=== PATIENT | male | born 1955 | race Caucasian/White ===

== ENCOUNTER 2020-04-20 05:56 | Inpatient (IN) ==
--- NOTE | 2020-04-04 15:57 | PAT Medication Instructions ---
Medication Instructions Date of Service April 04, 2020 Home Medications amlodipine 5 mg PO QAM aspirin [Aspir-81] 81 mg PO QAM cetirizine [Zyrtec] 10 mg PO HS cyanocobalamin (vitamin B-12) 1,000 mcg SUBCUT MONTHLY dulaglutide [Trulicity] 0.75 mg SUBCUT WK escitalopram oxalate 5 mg PO HS insulin glargine [Lantus Solostar U-100 Insulin] 75 unit SUBCUT BID levothyroxine 75 mcg PO QAM lisinopril 20 mg PO QAM metformin 1,000 mg PO BID metoprolol tartrate 25 mg PO BID oxycodone-acetaminophen 1 tab PO BID simvastatin 20 mg PO Q2D gabapentin 300 mg PO UD Continue as directed cyanocobalamin (vitamin B-12) 1,000 mcg SUBCUT MONTHLY (just do not take AM of surgery) dulaglutide [Trulicity] 0.75 mg SUBCUT WK (just do not take AM of surgery) ASK your prescriber and surgeon aspirin [Aspir-81] 81 mg PO QAM DO NOT take the morning of surgery lisinopril 20 mg PO QAM metformin 1,000 mg PO BID Take morning of surgery With a small sip of water, OTHERWISE NOTHING TO EAT OR DRINK AFTER MIDNIGHT: amlodipine 5 mg PO QAM levothyroxine 75 mcg PO QAM metoprolol tartrate 25 mg PO BID oxycodone-acetaminophen 1 tab PO BID (okay to take up to 4 hours prior to surgery if needed) gabapentin 300 mg PO UD Take evening before surgery cetirizine [Zyrtec] 10 mg PO HS escitalopram oxalate 5 mg PO HS insulin glargine [Lantus Solostar U-100 Insulin] 75 unit SUBCUT BID metformin 1,000 mg PO BID metoprolol tartrate 25 mg PO BID oxycodone-acetaminophen 1 tab PO BID (if needed) simvastatin 20 mg PO Q2D gabapentin 300 mg PO UD Insulin Dependent Diabetic Patients * Test your blood sugar the morning of surgery * If Blood Sugar is GREATER THAN 150, take HALF of your regular dose of: insulin glargine [Lantus Solostar U-100 Insulin] (37 units) * If Blood Sugar is LESS THAN 150, DO NOT TAKE ANY: insulin glargine [Lantus Solostar U-100 Insulin] Other Notes If you have any questions please call us at [phone] or [phone] or [phone] or [phone]
--- NOTE | 2020-04-05 13:54 | Anesthesiology Consultation ---
Date of Service April 05, 2020 Assessment & Plan (1) Encounter for pre-operative examination: COVID Status: As of 04/05 assessment, patient denies travel to endemic area, known exposure/sick contacts, or symptoms of COVID19. Patient instructed that they and their household members must follow strict social distancing guidelines, wear a mask in public and avoid travel for 14 days prior to surgery. Preoperative COVID19 testing to be completed prior to surgery per surgeon's arra ngements. Patient made aware to self-isolate as much as possible between COVID testing and surgery. Chart Review Chart Review: Acceptable Risk for Surgery and Patient seen in Pre Admission Testing Teaching & Discussion Instructed NPO after midnight before surgery, except medications with 15 cc of water. Medication instructions provided according to the PAT guidelines. History Surgery Operation Date: 04/20/20 07:45 Proposed Procedures p C5-C6 Anterior Cervical Discectomy and Fusion; Spinal Cord Monitoring - Milo Luu DO Height/Weight Height: 5 ft 10 in Weight: 121.5 kg Allergies Allergy/AdvReac Type Severity Reaction Status Date / Time azithromycin Allergy Mild ITCHING Verified 03/31/20 13:21 [From Zithromax Z-Servando] Medications Home Medications Medication Instructions Recorded Confirmed Last Taken amlodipine 5 mg PO QAM 03/31/20 03/31/20 Unknown aspirin [Aspir-81] 81 mg PO QAM 03/31/20 03/31/20 Unknown cetirizine [Zyrtec] 10 mg PO HS 03/31/20 03/31/20 Unknown cyanocobalamin (vitamin B-12) 1,000 mcg SUBCUT MONTHLY 03/31/20 03/31/20 Unknown dulaglutide [Trulicity] 0.75 mg SUBCUT WK 03/31/20 03/31/20 Unknown escitalopram oxalate 5 mg PO HS 03/31/20 03/31/20 Unknown insulin glargine [Lantus Solostar 75 unit SUBCUT BID 03/31/20 03/31/20 Unknown U-100 Insulin] levothyroxine 75 mcg PO QAM 03/31/20 03/31/20 Unknown lisinopril 20 mg PO QAM 03/31/20 03/31/20 Unknown metformin 1,000 mg PO BID 03/31/20 03/31/20 Unknown metoprolol tartrate 25 mg PO BID 03/31/20 03/31/20 Unknown oxycodone-acetaminophen 1 tab PO BID 03/31/20 03/31/20 Unknown simvastatin 20 mg PO Q2D 03/31/20 03/31/20 Unknown gabapentin 300 mg PO UD 04/01/20 04/01/20 Unknown Past Medical History Medical History Cervical spinal stenosis Diabetes mellitus, type 2 Hyperlipidemia Hypertension Hypothyroidism Peripheral neuropathy Past Family History Family History Sister Family history of diabetes mellitus Brother Family history of diabetes mellitus Past Surgical History Surgical History Cyst REMOVED FROM TESTICLE H/O partial nephrectomy RT D/T BENIGN KIDNEY TUMOR History of cataract surgery RT/LEFT History of colonoscopy History of tonsillectomy and adenoidectomy History of tooth extraction Past Anesthesia History No Hx of Anesthesia Complications Brother had some kind of reaction to anesthesia and " on the table and was brought back" but he apparently had many other comorbidities. History of PONV No Hx of PONV and No Hx of Motion Sickness STOP BANG Total 4 Social History Smoking Status: Never smoker Do You Dip or Chew Tobacco: No Hx Alcohol Use: Yes alcohol intake frequency: holidays/special occasions only Hx Substance Use: No substance use type: does not use Review of Systems Pt denies any recent chest pain, shortness of breath, palpitations, cough, fever, URI, or uncontrolled acid reflux. Physical Exam Vital Signs BP: 120/76 P: 64bpm SPO2: 96% RA T: 98.6 F R: 16 Constitutional + obese ENMT Mouth: no dental restorations, no chipped teeth and no loose teeth Thyromental Distance: > or= 3.5 Finger Breadths Mallampati Class: II Neck normal visual inspection; neck extension not limited Respiratory normal respiratory effort Auscultation: lungs clear to auscultation bilaterally Cardiovascular Rate/Rhythm: regular rate and regular rhythm Heart Sounds: no murmur Vessels: no carotid bruit Extremities: no edema Testing Laboratory Results 04/05/20 14:04 04/05/20 14:04 PT 11.4 Seconds (9.0-12.0) 04/05/20 14:04 INR 1.1 (0.9-1.1) 04/05/20 14:04 APTT 27.1 Seconds (21.0-31.0) 04/05/20 14:04 Urine Color Yellow 04/05/20 14:04 Urine Appearance Clear (Clear) 04/05/20 14:04 Urine pH 5.0 (4.5-7.5) 04/05/20 14:04 Ur Specific [place] 1.032 (1.000-1.030) H 04/05/20 14:04 Urine Protein 1+ (Negative) H 04/05/20 14:04 Urine Glucose (UA) 1+ (Negative) H 04/05/20 14:04 Urine Ketones Negative (Negative) 04/05/20 14:04 Urine Nitrite Negative (Negative) 04/05/20 14:04 Ur Leukocyte Esterase Negative (Negative) 04/05/20 14:04 Urine WBC (Auto) 1-5 /hpf (0-5) 04/05/20 14:04 Urine RBC (Auto) 0-4 /hpf (0-4) 04/05/20 14:04 U Hyaline Cast (Auto) 1-5 /lpf (0-5) 04/05/20 14:04 U Epithel Cells (Auto) 20-30 /lpf (0-5) H 04/05/20 14:04 Urine Bacteria (Auto) Negative (Negative) 04/05/20 14:04 Blood Type B Positive 04/05/20 14:04 Antibody Screen NEGATIVE 04/05/20 14:04 Electrocardiogram Date: 04/05/20 Findings: + SB @ (58bpm with 1st degree AV block) Nonspecific ST abnormality. Chest X-Ray Date: 04/05/20 Findings: + NAD
[2020-04-05 14:50] LABS: Basophils # (auto) 0.04 K/uL (0-0.2); Basophils % (auto) 0.6 %; Eosinophils # (auto) 0.19 K/uL (0-0.5); Eosinophils % (auto) 2.9 %; Hematocrit (blood only) 42.4 % (42-52); Hemoglobin 14.7 g/dL (14.0-18.0); Immature Granulocytes # (auto) 0.03 K/uL (0.00-0.02); Immature Granulocytes % (auto) 0.5 %; Lymphocytes # (auto) 2.41 K/uL (1.2-3.4); Lymphocytes % (auto) 36.4 %; Mean Corpuscular Hemoglobin 30.4 pg (25-34); Mean Corpuscular Hgb Conc 34.7 g/dL (32-36); Mean Corpuscular Volume 87.6 fL (80-100); Mean Platelet Volume 9.9 fL (7.4-10.4); Monocytes % (auto) 9.1 %; Neutrophils # (auto) 3.35 K/uL (1.4-6.5); Neutrophils % (auto) 50.5 %; Platelet Count 144 K/uL (130-400); RDW Coefficient of Variation 13.4 % (11.5-14.5); RDW Standard Deviation 43.3 fL (36.4-46.3); Red Blood Count 4.84 M/uL (4.7-6.1); White Blood Count 6.62 K/uL (4.8-10.8)
[2020-04-05 14:52] LABS: Appearance Urine Clear (Clear); Bacteria Urine Automated Negative (Negative); Bilirubin Urine Negative (Negative); Blood Urine Negative (Negative); Color Urine Yellow; Epithelial Cell Urine Auto 20-30 /lpf (0-5); Glucose Urine UA 1+ (Negative); Ketones Urine Negative (Negative); Leukocyte Esterase Urine Negative (Negative); Nitrite Urine Negative (Negative); Protein Urine 1+ (Negative); RBC Urine Automated 0-4 /hpf (0-4); Specific Gravity Urine 1.032 (1.000-1.030); Urobilinogen Urine Negative (Negative)
--- NOTE | 2020-04-05 14:56 | XRay Report ---
XR chest Pre-admission PA/Lat CLINICAL HISTORY: Preoperative chest COMPARISON STUDY: No previous studies for comparison. FINDINGS: The cardiac and mediastinal contours are normal. There is no evidence of focal pulmonary co nsolidation. There is no evidence of failure. No pleural effusions are visualized.[ IMPRESSION: No active disease in the chest. ACT 112: Negative or not required by law. Electronically signed by: Manoj Sharma M.D. 04/05/2020 2:54 PM
[2020-04-05 15:01] LABS: INR 1.1 (0.9-1.1); Partial Thromboplastin Time 27.1 Seconds (21.0-31.0); Prothrombin Time 11.4 Seconds (9.0-12.0)
--- NOTE | 2020-04-05 15:52 | Electrocardiogram Report ---
Test Reason : Blood Pressure : / mmHG Vent. Rate : 058 BPM Atrial Rate : 058 BPM P-R Int : 224 ms QRS Dur : 090 ms QT Int : 446 ms P-R-T Axes : 030 005 092 degrees QTc Int : 437 ms Sinus bradycardia with 1st degree A-V block Nonspecific ST abnormality Abnormal ECG No previous ECGs available Confirmed by Andrea Vera ([id number]) on 04/05/2020 3:52:17 PM Referred By: Milo Luu Confirmed By:Andrea Vera
[2020-04-05 16:09] LABS: Calcium 7.9 mg/dl (8.5-10.1); Creatinine Clr Calc Pharmacy 88.7 ml/min; Est GFR (African American) 81.8; Est GFR (Non-African American) 70.6; Potassium 4.7 mmol/L (3.5-5.1)
[2020-04-20] MEDS ORDERED: GABAPENTIN 600 MG DOSE PO SCH (06:00)
[2020-04-20] MEDS ORDERED: CeleBREX 200 MG CAP PO SCH (06:00)
[2020-04-20] MEDS ORDERED: CEFAZOLIN 3000MG 72.5 ML IV SCH (06:00)
[2020-04-20] MEDS ORDERED: LR 15ML/HR IV SCH (06:00)
[2020-04-20] MEDS ORDERED: ACETAMINOPHEN 500 MG TAB PO SCH (06:00)
[2020-04-20] MEDS ORDERED: BACITRACIN INJ 50,000 UNIT VIAL ONE (06:59)
[2020-04-20] MEDS ORDERED: MIDAZOLAM HCL 1 MG/ML 2ML VIAL ONE (07:02)
[2020-04-20] MEDS ORDERED: LIDOCAINE HCL 2% 2 ML VIAL/AMP(20MG/ML) INFIL ONE (07:02)
[2020-04-20] MEDS ORDERED: ONDANSETRON INJ 2 MG/ML 2 ML VIAL ONE (07:02)
[2020-04-20] MEDS ORDERED: PROPOFOL IV EMULSION 10 MG/ML 20 ML VIAL IV ONE ×4 (07:02→08:37)
[2020-04-20] MEDS ORDERED: ROCURONIUM BROMIDE 10 MG/ML 5 ML VIAL IV ONE ×3 (07:02→10:48)
[2020-04-20] MEDS ORDERED: fentaNYL citrate 100 MCG/2 ML VIAL ONE (07:02)
--- NOTE | 2020-04-20 07:34 | History & Physical Bridge Note ---
Date of Service April 20, 2020 History & Physical Bridge Note I have examined the patient, reviewed the History & Physical and in the interval since the performance of the History & Physical I have noted the following changes of clinical significance: no changes noted
--- NOTE | 2020-04-20 07:35 | History & Physical Report ---
Date of Service April 20, 2020 Assessment & Plan (1) Herniation of cervical intervertebral disc with radiculopathy: Admission and Anticipated Discharge Date Admission Date: C5-C6 anterior cervical discectomy and fusion History of Present Illness Chief Complaint: Neck and arm pain Primary Care Provider: Nicko Juarez This is a 65-year-old male presents with neck and arm symptoms with nonoperative care is here for surgical invention. Allergies Allergy/AdvReac Type Severity Reaction Status Date / Time azithromycin Allergy Mild ITCHING Verified 04/20/20 06:08 [From Zithromax Z-Servando] Home Medications Home Medications Medication Instructions Recorded Confirmed Type amlodipine 5 mg PO QAM 03/31/20 04/20/20 History aspirin [Aspir-81] 81 mg PO QAM 03/31/20 04/20/20 History cetirizine [Zyrtec] 10 mg PO HS 03/31/20 04/20/20 History cyanocobalamin (vitamin B-12) 1,000 mcg SUBCUT MONTHLY 03/31/20 04/20/20 History dulaglutide [Trulicity] 0.75 mg SUBCUT WK 03/31/20 04/20/20 History escitalopram oxalate 5 mg PO HS 03/31/20 04/20/20 History insulin glargine [Lantus Solostar 32 unit SUBCUT BID 03/31/20 04/20/20 History U-100 Insulin] levothyroxine 75 mcg PO QAM 03/31/20 04/20/20 History lisinopril 20 mg PO QAM 03/31/20 04/20/20 History metformin 1,000 mg PO BID 03/31/20 04/20/20 History metoprolol tartrate 25 mg PO BID 03/31/20 04/20/20 History oxycodone-acetaminophen 1 tab PO BID 03/31/20 04/20/20 History simvastatin 20 mg PO Q2D 03/31/20 04/20/20 History gabapentin 300 mg PO UD 04/01/20 04/20/20 History Past Med/Surg History Medical History Cervical spinal stenosis Diabetes mellitus, type 2 Hyperlipidemia Hypertension Hypothyroidism Peripheral neuropathy Surgical History Cyst REMOVED FROM TESTICLE H/O partial nephrectomy RT D/T BENIGN KIDNEY TUMOR History of cataract surgery RT/LEFT History of colonoscopy History of tonsillectomy and adenoidectomy History of tooth extraction Family History Sister Family history of diabetes mellitus Brother Family history of diabetes mellitus Social History Smoking Status: Never smoker Second Hand Exposure: No; Do You Dip or Chew Tobacco: No; Tobacco Cessation Education Requested by Patient: No Hx Alcohol Use: Yes Hx Substance Use: No Preferred Language: Wolof Regulator Inspector Required: No Beliefs That Will Affect Care: None Current Living Situation: Spouse Feels Safe at Home: Yes Safety Concerns: Feels Safe At This Time Physical Exam Physical Exam: Patient alert and oriented neurologically intact. Heart regular rhythm. Lungs clear to auscultation. Results & Data ([facility]) Vital Signs (Past 12 Hours) Vital Signs Temp Pulse Resp BP Pulse Ox 04/20/20 06:15 36.4 C L 58 L 20 149/84 H 97
[2020-04-20] MEDS ORDERED: FLOSEAL HEMOSTATIC MATRIX 10ML TOP ONE (08:18)
[2020-04-20] MEDS ORDERED: HYDROmorphone INJ 2 MG/ML SYR/VIAL ONE ×2 (08:30→10:07)
[2020-04-20] MEDS ORDERED: DEXAMETHASONE SOD INJ 4 MG/ML VIAL ONE (08:37)
[2020-04-20] MEDS ORDERED: SUCCINYLCHOLINE 100MG/5ML SYR IV ONE (08:37)
--- NOTE | 2020-04-20 09:00 | Operative Report ---
Post Operative Report Pre & Post Diagnosis Operation Date: 04/20/20 07:45 Pre-Op Diagnosis: Spinal Stenosis, Cervical Region Post-Op Diagnosis: Spinal Stenosis, Cervical Region I identified the patient and participated in the time-out.: Yes Procedure Operation Date: 04/20/20 07:45 Actual Procedures #1 anterior cervical discectomy with bilateral foraminotomies C5-C6. #2 anterior cervical arthrodesis C5-C6. #3 placement of 8 mm Spira cage filled with DBM at C5-C6. #4 application of villatoro plate and screws across C5-C6. Surgeon Milo Luu, Public Records Officer Colette Vargas Estimated Blood Loss 10 Findings See Below The patient is 5 foot 10 inches tall weighing over 119 kg with a BMI in excess of 37. The patient's body habitus did add increased technical difficulty both with positioning exposure and surgical procedure. This at least 25% increase to the operative time. Specimens None Indications This is a 65-year-old male presents with chronic persistent neck and arm symptoms after failing course of nonoperative care is here for surgical intervention. Description of Procedure Patient was met with identified informed consent obtained. Patient was then taken to the operative suite underwent an patient placed in a prone position with the head Shah shaft headman. All bony prominences well-padded eyes inspected to ensure no external pressure placed upon them. This point the anterior cervical spine was prepped and draped in normal sterile fashion. The assistance of fluoroscopy identified the C5-6 displacement transverse incision was placed along the right anterior aspect of the cervical spinal lines region. Sharp dissection with the assistance of bipolar electrocautery was performed down to and exposing the C5-6 6 disc space. I verified my position with fluoroscopy. Then performed a complete discectomy of C5-6 out to the unc overtebral joints bilaterally. [place] distracting pins were lysed assist in visualization. Removed all posterior annular fibers longitudinal ligament and evidence of disc herniation on the left. After complete decompression endplates were burred to subcortical bleeding bone and an 8 mm Spira cage filled with DBM tapped in position. Distracting apparatus was removed and a 5 complete and screws applied with assistance of fluoroscopy. The incision was then copiously irrigated explored to ensure no damage to surrounding structures remaining bleeding. 10 round BERNARD drain inserted. The incision was then closed with 2 Vicryl in a fashion of 4 Monocryl for final closure. Steri-Strip sterile dressings placed. Patient waken taken PACU stable condition. Please note spinal cord monitoring was utilized that the procedure no changes noted. Lastly Colette Vargas was present at the entire surgery involved the patient positioning complex portions of the surgery and final skin closure. I attest to the content of the Intraoperative Record and any orders documented therein. Any exceptions are noted below.
--- NOTE | 2020-04-20 09:39 | Fluoroscopy Report ---
INTRAOPERATIVE RADIOGRAPHS CLINICAL HISTORY: C5-C6 spinal fusion. Fluoroscopy time: 10 seconds. FINDINGS: 2 spot fluoroscopic views of the cervical spine are presented. There has been discectomy at C5-C6 with anterior fusion at this level. The orthopedic hardware appears intact. An endotracheal tu be is in place. IMPRESSION: Intraoperative images from C5-C6 spinal fusion as above. Electronically signed by: Frank Salmeron M.D. 04/20/2020 9:37 AM
[2020-04-20] MEDS ORDERED: ATROPINE SULFATE 0.1 MG/ML 10ML SYR IV PRN (09:41)
[2020-04-20] MEDS ORDERED: HYDROmorphone INJ 1 MG/ML SYRINGE IV PRN ×2 (09:41→10:26)
[2020-04-20] MEDS ORDERED: ONDANSETRON INJ 2 MG/ML 2 ML VIAL IV PRN ×2 (09:41→10:26)
[2020-04-20] MEDS ORDERED: LABETALOL HCL IV 5 MG/ML 20ML IV PRN (09:41)
--- NOTE | 2020-04-20 10:16 | Anesthesiology Progress Note ---
Date of Service April 20, 2020 Anesthesia Post Procedure Vital Signs Vital Signs: Temp Pulse Pulse Resp BP BP Pulse Ox 04/20/20 10:05 59 L 16 148/86 H 99 04/20/20 09:55 36.3 C L 58 L 16 150/89 H 99 04/20/20 09:45 62 16 144/82 H 99 04/20/20 09:35 59 L 16 145/84 H 99 04/20/20 09:25 55 L 16 148/83 H 100 04/20/20 09:18 36.4 C L 59 L 16 163/95 H 100 04/20/20 06:15 36.4 C L 58 L 20 149/84 H 97 Transfer of Care Handoff Completed per policy Notes Mental Status: alert / awake / arousable Patient Amnestic to Procedure: Yes Nausea / Vomiting: adequately controlled Pain: adequately controlled Airway Patency, RR, SpO2: stable & adequate BP & HR: stable & adequate Hydration State: stable & adequate Anesthetic Complications: no major complications apparent
[2020-04-20] MEDS ORDERED: NALOXONE HCL 0.4 MG/1 ML VIAL/CARP IV PRN (10:26)
[2020-04-20] MEDS ORDERED: SOD PHOSPHATE/SOD BIPHOSPHATE ENEMA 132 ML BTL PR PRN (10:26)
[2020-04-20] MEDS ORDERED: DO NOT ADMINISTER FLU VACCINE PRN (10:26)
[2020-04-20] MEDS ORDERED: DO NOT ADMINISTER PNEUMOCOCCAL VACCINE PRN (10:26)
[2020-04-20] MEDS ORDERED: TRAMADOL HCL 50 MG TABLET PO PRN (10:26)
[2020-04-20] MEDS ORDERED: FAMOTIDINE 20 MG TAB PO PRN (10:26)
[2020-04-20] MEDS ORDERED: PROMETHAZINE HCL 12.5 MG in SODIUM CHLORIDE 0.9% 50 ML IV PRN (10:26)
[2020-04-20] MEDS ORDERED: METOCLOPRAMIDE HCL INJ 5 MG/ML 2 ML VIAL IV PRN (10:26)
[2020-04-20] MEDS ORDERED: RACEPINEPHRINE 2.25% NEBU SOLN 0.5 ML VIAL INH PRN (10:26)
[2020-04-20] MEDS ORDERED: MAGNESIUM HYDROXIDE SUSP 30 ML UDC PO PRN (10:26)
[2020-04-20] MEDS ORDERED: ACETAMINOPHEN 1,000 MG/100 ML VIAL IV PRN (10:26)
[2020-04-20] MEDS ORDERED: LORazepam 0.5 MG TAB PO PRN (10:26)
[2020-04-20] MEDS ORDERED: ACETAMINOPHEN 500 MG TAB PO PRN (10:26)
[2020-04-20] MEDS ORDERED: ALUMINUM/MAGNESIUM SUSP 30 ML UDC PO PRN (10:26)
[2020-04-20] MEDS ORDERED: OXYCODONE HCL IR 5 MG TAB (IMMEDIATE RELEASE) PO PRN (10:26)
[2020-04-20] MEDS ORDERED: DEXAMETHASONE SOD PHOSPHATE 8 MG in SYRINGE 0 ML IV PRN (10:26)
[2020-04-20] MEDS ORDERED: HYDROmorphone INJ 0.5 MG/0.5 ML SYR IV PRN (10:26)
[2020-04-20] MEDS ORDERED: ONDANSETRON 4 MG OD TAB PO PRN (10:26)
[2020-04-20] MEDS ORDERED: LORazepam 0.5 MG/1 ML VIAL IV PRN (10:26)
[2020-04-20] MEDS ORDERED: PHARMACY GLYCEMIC MGMT CONSULT PRN (10:30)
[2020-04-20] MEDS ORDERED: GLUCOSE 40% GEL 15 GM TUBE PO PRN (10:45)
[2020-04-20] MEDS ORDERED: GLUCAGON FOR INJ 1 MG VIAL IM PRN (10:45)
[2020-04-20] MEDS ORDERED: CARBOHYDRATES FOR HYPOGLYCEMIA PO PRN (10:45)
[2020-04-20] MEDS ORDERED: DEXTROSE 50% 50 ML SYRINGE IV PRN (10:45)
[2020-04-20] MEDS ORDERED: GLUCOSE 10 TABS/TUBE PO PRN (10:45)
[2020-04-20] MEDS: SODIUM CHLORIDE 0.9% 1000ML 1,000 ML IV SCH ×2 (10:59→20:42)
--- NOTE | 2020-04-20 11:29 | Pharmacy Report ---
Glycemic Control Consultation - Date of Service April 20, 2020 - Scope Scope: Glycemic Pharmacist consulted for glycemic control and to write orders per [facility] inpatient glycemic control protocol. - Objective Weight: 119.6 kg Accuchecks BSG (last 24hrs): 04/20/20 04/20/20 04/20/20 06:13 07:36 08:20 POC Glucose 83 80 79 04/20/20 04/20/20 08:58 09:18 POC Glucose 72 109 H - Recent Pertinent Medications Outpatient Anti-diabetic Regimen: * trulicity weekly, Lantus 32 units Qam and 20 units Qpm * A1c = pending Risk Factors for Insulin Resistance: * Steroids: DXM 8 iv * Recent Surgery: POD 0 * Diet: clears - Assessment & Plan Assessment & Plan: ASSESSMENT: * 65 year old now s/p spinal surgery - POD 0. Pharmacy consulted for management of BSGs post op. Patient is type 2 diabetic managed on trulicity and Lantus/novolog. Unclear A1c - ordered for tomorrow AM * Received 7 units of basal insulin this AM and BSGs on lower end of range at 83-79-72 mg/dL * Did receive IV steroids in OR, therefore anticipate steroid induced hyperglycemia. Plan to restart basal insulin at dinner to ensure BSGs trending up and PO intake adequate. Will plan to stress evening dose since only partial basal dose given this AM and since steroids given PLAN FOR INPATIENT GLYCEMIC CONTROL: * Basal insulin * Lantus 25-35 units with dinner based upon BSG value / see EMar for more details * Bolus insulin * NovoLog per scale ACHS or Q6hrs while NPO * Goal Range: Low 110 mg/dL - High 140 mg/dL * Correction Factor: 20 mg/dL/unit * Nutritional / Prandial insulin per carb ratio of 1 unit per 6 grams CHO consumed * Please note that the plan above was derived based on current level of insulin resistance and hospital stress. These recommendations are appropriate for inpatient admission only. Plan of care upon discharge will need to be reassessed to avoid potential outpatient hypo/hyperglycemia. Thank you.
--- NOTE | 2020-04-20 11:49 | Consultation ---
Date of Consultation April 20, 2020 Assessment & Plan (1) H/O cervical spine surgery: Post op day# 0 S/P ACDF C5-C6 by Dr Luu Post op doing well EBL #10ml -pain management per ortho -wound management per ortho -PT/OT as appropriate -DVT prophylaxis per ortho -monitor H&H for acute blood loss anemia; pre-op hgb: 14.7 (2) Diabetes mellitus, type 2: Pt reports last A1c was in the high 9's. He is now following with hot water heater installer who adjusted his insulin approx 1 month ago and has had better control of BSGs -Hold metformin, Trulicity, home Lantus -Please see med pharmacist on board, appreciate glycemic management (3) Hypertension: BP post op 115/69 -Hold amlodipine, lisinopril and reassess tomorrow morning -Continue metoprolol tartrate (4) Hyperlipidemia: -continue simvastatin (5) Hypothyroidism: -continue levothyroxine DVT Prophylaxis -SCDs per ortho Disposition per primary service Follows with Dr Nicko Juarez in [place] for routine care Pt was seen and care coordinated with Dr Rowe. See addendum Thank you for this consultation. We will follow the patient with you during their hospital stay. You can reach a [facility] via pager @ [phone]. Supervising Physician Co-Signing Physician Notes I, Dr. Igor Rowe, have seen and examined the patient Devang Pedraza with physician shampoo assistant and would like to comment that On Physical exam General: no acute distress HEENT: extraoccular movements intact Neck: with anterior neck BERNARD drain Heart: regular heart rate Lungs: clear to auscultation bilaterally Abdomen: soft, nontender, positive bowel sounds Extremities/Neuro: moves all extremities, no focal neurological deficits This is a patient who had Spinal Stenosis of Cervical Region and had neck surgery by by orthopedic service Dr. Luu on 04/20/2020 and hospitalist medicine being asked for consultation for POST-OP Management -prn pain medications and patient to get prn IV dexamethasone if stridor as per orthopedic orders -management of Type 2 Diabetes Mellitus without group home current use of insulin at home with pharmacy glycemic consult while inpatient. Outpatient metformin is held while patient to get insulin as needed -Patient to have IV fluids after the surgery and that order is active also post- operative antibiotics of cefazolin -Home dose Lisinopril and home dose amlodipine being held for now but can be titrated up later based on post-operative blood pressures -management of hypothyroidism with home dose levothyroxine -on aspirin 81 mg daily -labs to be drawn on 04/21/2020 AM -agree with other assessment and plans as per physician shampoo assistant -My colleague hospitalist Dr. Burr will be following the patient starting on 04/21/2020 History of Present Illness Requesting Physician: Dr. Luu Reason for Consultation: Postop medical management Attending Physician: Milo Luu DO History of Present Illness Pt is 65 y/o M with PMH HTN, dyslipidemia, insulin- dependent DM II, peripheral neuropathy, hypothyroidism seen in medical consultation s/p ACDF C5-C6 today. Postop patient reports is doing well. Denies any pain currently. Reports throat is a little bit sore. Is drinking water without difficulty or choking. Denies nausea, vomiting, chest pain, shortness of breath, dizziness, headache. Denies any extremity pain or paresthesias. Had BM yesterday. Denies fever/chills, neck pain, palpitations, cough, abdominal pain, extremity weakness, extremity edema, rashes, urinary symptoms. Allergies Allergy/AdvReac Type Severity Reaction Status Date / Time azithromycin Allergy Mild ITCHING Verified 04/20/20 06:08 [From Zithromax [email or web address]] Home Medications Home Medications Medication Instructions Recorded Confirmed Type amlodipine 5 mg PO QAM 03/31/20 04/20/20 History aspirin [Aspir-81] 81 mg PO QAM 03/31/20 04/20/20 History cetirizine [Zyrtec] 10 mg PO HS 03/31/20 04/20/20 History cyanocobalamin (vitamin B-12) 1,000 mcg SUBCUT MONTHLY 03/31/20 04/20/20 History dulaglutide [Trulicity] 0.75 mg SUBCUT WK 03/31/20 04/20/20 History escitalopram oxalate 5 mg PO HS 03/31/20 04/20/20 History insulin glargine [Lantus Solostar 32 unit SUBCUT BID 03/31/20 04/20/20 History U-100 Insulin] levothyroxine 75 mcg PO QAM 03/31/20 04/20/20 History lisinopril 20 mg PO QAM 03/31/20 04/20/20 History metformin 1,000 mg PO BID 03/31/20 04/20/20 History metoprolol tartrate 25 mg PO BID 03/31/20 04/20/20 History oxycodone-acetaminophen 1 tab PO BID 03/31/20 04/20/20 History simvastatin 20 mg PO Q2D 03/31/20 04/20/20 History gabapentin 300 mg PO UD 04/01/20 04/20/20 History insulin aspart U-100 [Novolog 7 unit SUBCUT PM 04/20/20 04/20/20 History Flexpen U-100 Insulin] Patient History Medical History (Updated 04/20/20 @ 12:16 by Ngozi Alfaro PA-C) Cervical spinal stenosis Diabetes mellitus, type 2 Hyperlipidemia Hypertension Hypothyroidism Peripheral neuropathy Surgical History (Updated 04/20/20 @ 12:16 by Ngozi Alfaro PA-C) Cyst REMOVED FROM TESTICLE H/O partial nephrectomy RT D/T BENIGN KIDNEY TUMOR History of cataract surgery RT/LEFT History of colonoscopy History of tonsillectomy and adenoidectomy History of tooth extraction Family History Sister Family history of diabetes mellitus Brother Family history of diabetes mellitus Social History Smoking Status: Never smoker Second Hand Exposure: No; Do You Dip or Chew Tobacco: No; Tobacco Cessation Education Requested by Patient: No Hx Alcohol Use: Yes Hx Substance Use: No Preferred Language: Estonian Communication Ability: Effective 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: No Beliefs That Will Affect Care: None marital status: Current Living Situation: Spouse Feels Safe at Home: Yes Safety Concerns: Feels Safe At This Time Review of Systems Review of Systems: All systems reviewed & are unremarkable except as noted in HPI & below Physical Exam Physical Exam: General: no distress, obese Head: normocephalic, atraumatic Eyes: conjunctiva non-injected, anicteric ENT: normal inspection external ears, nose, mucous membranes moist Neck: anterior neck with surgical dressing in place and is dry, BERNARD drain in place with serosanguineous drainage Lungs: clear, no respiratory distress, no wheezing/rhonchi/rales CV: RRR, no murmur, no pretibial edema Abd: normal BS, soft, non-tender Ext: bilateral data security consultant strength intact, pedal pushes and pulls intact bilaterally, no calf tenderness, distal pulses intact, sensation to light touch intact Neuro: A&O x 3, no focal deficits noted, normal affect Skin: warm, dry Results & Data ([facility]) Vital Signs (Past 12 Hours) Vital Signs Temp Pulse Pulse Resp BP BP Pulse Ox 04/20/20 11:35 61 16 115/69 97 04/20/20 11:06 36.4 C L 60 17 124/75 96 04/20/20 10:57 63 16 95 04/20/20 10:35 36.5 C 60 16 137/85 95 04/20/20 10:28 36.6 C 58 L 12 98 04/20/20 10:25 58 L 12 136/82 98 04/20/20 10:15 36.6 C 59 L 16 127/79 99 04/20/20 10:05 59 L 16 148/86 H 99 04/20/20 09:55 36.3 C L 58 L 16 150/89 H 99 04/20/20 09:45 62 16 144/82 H 99 04/20/20 09:35 59 L 16 145/84 H 99 04/20/20 09:25 55 L 16 148/83 H 100 04/20/20 09:18 36.4 C L 59 L 16 163/95 H 100 04/20/20 06:15 36.4 C L 58 L 20 149/84 H 97
[2020-04-20] MEDS: lisinopriL 20 MG TAB PO SCH (12:22)
[2020-04-20] MEDS: INSULIN ASPART 100 UNITS/ML 3 ML PEN SC SCH ×3 (12:34→20:52)
[2020-04-20] MEDS: CEFAZOLIN 2000MG 2,000 MG/15 ML SYR IV SCH (16:11)
[2020-04-20] MEDS ORDERED: INSULIN GLARGINE SOLOSTAR 100 UNITS/ML 3 ML PEN SC SCH (18:00)
[2020-04-20] MEDS: METOPROLOL TARTRATE 25 MG TAB PO SCH (20:46)
[2020-04-20] MEDS ORDERED: CETIRIZINE HCL 10 MG TABLET PO SCH (21:00)
[2020-04-20] MEDS ORDERED: SIMVASTATIN 20 MG TAB PO SCH (21:00)
[2020-04-20] MEDS ORDERED: ESCITALOPRAM OXALATE 10 MG TAB PO SCH (21:00)
[2020-04-20] MEDS ORDERED: DOCUSATE SODIUM/SENNA 50/8.6MG TAB PO SCH (21:00)
[2020-04-20] MEDS ORDERED: GABAPENTIN 300 MG CAP PO SCH (21:00)
[2020-04-21] MEDS ORDERED: INSULIN ASPART 100 UNITS/ML 3 ML PEN SC SCH
[2020-04-21] MEDS: CEFAZOLIN 2000MG 2,000 MG/15 ML SYR IV SCH (00:33)
[2020-04-21] MEDS ORDERED: LEVOTHYROXINE SODIUM 75 MCG TABLET PO SCH (06:30)
[2020-04-21 07:14] LABS: Hematocrit (blood only) 39.2 % (42-52); Hemoglobin 14.1 g/dL (14.0-18.0); Mean Corpuscular Hemoglobin 30.9 pg (25-34); Mean Platelet Volume 9.3 fL (7.4-10.4); Platelet Count 138 K/uL (130-400); RDW Coefficient of Variation 13.4 % (11.5-14.5); RDW Standard Deviation 41.8 fL (36.4-46.3); Red Blood Count 4.56 M/uL (4.7-6.1); White Blood Count 10.16 K/uL (4.8-10.8)
[2020-04-21 07:40] LABS: Calcium 8.5 mg/dl (8.5-10.1); Creatinine Clr Calc Pharmacy 106.3 ml/min; Est GFR (African American) 102.9; Est GFR (Non-African American) 88.8; Potassium 4.3 mmol/L (3.5-5.1)
[2020-04-21 08:02] LABS: Estimated Average Glucose 186 mg/dl; Hemoglobin A1C 8.1 % (4.5-5.6)
--- NOTE | 2020-04-21 08:12 | Discharge Summary ---
Date of Service April 21, 2020 Admission HPI Per Admitting Provider This is a 65-year-old male presents with neck and arm symptoms with nonoperative care is here for surgical invention. Principal Diagnosis Cervical spinal stenosis with radiculopathy Discharge Data Allergies Allergy/AdvReac Type Severity Reaction Status Date / Time azithromycin Allergy Mild ITCHING Verified 04/20/20 06:08 [From Zithromax [facility]] Consultations 04/20/20 10:26 Consult Hospitalist Routine Procedures Performed Operation Date: 04/20/20 07:45 Actual Procedures p C5-C6 Anterior Cervical Discectomy and Fusion; Spinal Cord Monitoring(Not Applicable) - Milo Luu DO Ordered Studies 04/20/20 07:45 FL cervical 2-3V Routine FL fluoroscopy <1hr Routine Hospital Course (1) Herniation of cervical intervertebral disc with radiculopathy: Patient underwent anterior cervical discectomy fusion tolerated this well was taken to orthopedic floor postoperatively postop day 1 he swallowing well no hoarseness. Excellent strength testing. Subsequent discharge home. Discharge orders instructions from the chart was reviewed. Total Time Total Time Spent Total Time Spent (In Minutes): 20 minutes Discharge Plan Discharge Items Patient Disposition: Home - Self-Care Reason For Visit: Spinal Stenosis, Cervical Region Discharge Diagnosis: Cervical spinal stenosis with radiculopathy Activity: As commented below Non-emergency contact: Primary Care Provider Call non-emergency contact if: you have any medication questions Follow-up/Referrals: Nicko Juarez [Primary Care Provider] - Diet: Regular Addtl Attending Provider Instructions: ACTIVITY RECOMMENDATIONS: SELF CARE INSTRUCTIONS AFTER CERVICAL FUSIONS 1. No smoking. Smoking drastically decreases the chance of a solid fusion. 2. No bending, lifting more than 5 pounds, or twisting (roll like a log when turning in bed). 3. You may shower 3 days after surgery. Thoroughly dry wound. Do not soak in the tub. 4. Cervical collar: Must be worn at all times including sleeping. You may remove the brace only to bath, eat and if you are sitting in a recliner. 5. Please walk as much as you can for exercise. Gradually increase the distance that you walk as your endurance increases. SPECIAL CARE INSTRUCTIONS: VERY IMPORTANT TO READ AND REVIEW A. Do not take any anti-inflammatory medications (i.e. Indocin, Advil, Aspirin, Naprosyn, Aleve, Motrin, etc.) as these may inhibit the chance of a solid fusion. Tylenol is okay to take. B. Your surgical incision has been closed with a cosmetic suture under the skin that will dissolve in about 6 weeks. In 14 days, you can use a pair of clean scissors and cut the suture that is left outside of the skin at the ends of your incision. C. Complications are uncommon, but please contact us if you have any signs or symptoms of: 1. wound infection (fever higher than 102.5 degrees F, redness, separation of wound, drainage, or increasing pain from the incision) 2. blood clots in legs (pain, swelling, redness and warmth in legs) 3. urinary tract infection (fever higher than 102.5 degrees, burning upon urination or increased frequency of urination) 4. nerve problems (inability to walk on your toes or heels, numbness, loss of bowel or bladder control) 5. any other symptoms that concern you. D. Please call the office at if you have any concerns or questions about your operation or recovery. MANAGING PAIN AFTER SPINAL SURGERY 1. Narcotic medication is intended for short-term use and will be provided for surgical pain. Surgical pain usually lasts for a period of 4-6 weeks. Narcotic medication includes Percocet, Vicodin, Darvocet, Tylenol #3 or Lortab. 2. Longer-term pain is more appropriately treated with non-narcotic medication such as Tylenol ES. 3. Muscle spasm is not appropriately treated with narcotics. Muscle relaxers such as Soma, Flexeril or Skelaxin can be used along with Tylenol ES. 4. Remember that we all live with some "aches and pains". This is not unusual or uncommon after an injury or as we get older. 5. We will provide appropriate medication within the normal guidelines of their prescribed use. We will also be very cautious and aware of potential abuse and extended duration of patients' medication needs. 6. Please allow 2-3 days to process refills. Prescriptions will not be mailed but must be picked up at the office. FOLLOW UP VISIT: Keep your scheduled follow-up appointment. Any questions, please call the office at . Pending Studies at Discharge: No Stand-Alone Forms: My [facility], Smoking Cessation Medications and DC Order Prescriptions: New tramadol 50 mg tablet 50 mg PO Q6H PRN (Reason: pain, moderate) Qty: 20 RF: 0 oxycodone 5 mg tablet 5 mg PO Q6H PRN (Reason: pain, severe) Qty: 20 RF: 0 Continued cetirizine [Zyrtec] 10 mg Tablet 10 mg PO HS RF: 0 lisinopril 20 mg Tablet 20 mg PO QAM RF: 0 amlodipine 5 mg Tablet 5 mg PO QAM RF: 0 aspirin [Aspir-81] 81 mg Tablet,Delayed Release (Dr/Ec) 81 mg PO QAM RF: 0 levothyroxine 75 mcg Tablet 75 mcg PO QAM RF: 0 oxycodone-acetaminophen 5-325 mg Tablet 1 tab PO BID RF: 0 simvastatin 20 mg Tablet 20 mg PO Q2D RF: 0 cyanocobalamin (vitamin B-12) 1,000 mcg/mL Solution 1,000 mcg SUBCUT MONTHLY RF: 0 metformin 1,000 mg Tablet 1,000 mg PO BID RF: 0 escitalopram oxalate 5 mg Tablet 5 mg PO HS RF: 0 metoprolol tartrate 25 mg Tablet 25 mg PO BID RF: 0 Lantus Solostar U-100 Insulin 100 unit/mL (3 mL) Insulin Pen 32 unit SUBCUT BID RF: 0 Trulicity 0.75 mg/0.5 mL Pen Injector 0.75 mg SUBCUT WK RF: 0 gabapentin 300 mg Capsule 300 mg PO UD RF: 0 insulin aspart U-100 [Novolog Flexpen U-100 Insulin] 100 unit/mL (3 mL) insulin pen 7 unit SUBCUT PM RF: 0 Discharge Orders: Discharge Order (Routine); Ordered 04/21/20 Ordered By: Milo Luu Admission Data Admit Date/Time: 04/20/20 09:33 Attending Provider: Milo Luu Admit Provider: Milo Luu Primary Care Provider: Nicko Juarez Other Providers: Arvind Burr
[2020-04-21] MEDS ORDERED: GABAPENTIN 300 MG CAP PO SCH (09:00)
[2020-04-21] MEDS ORDERED: ASPIRIN 81 MG ECTAB PO SCH (09:00)
[2020-04-21] MEDS ORDERED: INSULIN GLARGINE SOLOSTAR 100 UNITS/ML 3 ML PEN SC SCH (09:00)
[2020-04-21] MEDS ORDERED: AMLODIPINE BESYLATE 5 MG TAB PO SCH (09:00)
[2020-04-21] MEDS ORDERED: POLYETHYLENE (MIRALAX) 17 GM PACK PO SCH (09:02)
[2020-04-21] MEDS: lisinopriL 20 MG TAB PO SCH (09:08)
[2020-04-21] MEDS: METOPROLOL TARTRATE 25 MG TAB PO SCH (09:09)
[2020-04-21] MEDS: INSULIN ASPART 100 UNITS/ML 3 ML PEN SC SCH (09:13)
--- NOTE | 2020-04-21 11:30 | Hospitalist Progress Note ---
Date of Service April 21, 2020 Assessment & Plan (1) H/O cervical spine surgery: Cervical stenosis S/P anterior cervical discectomy with bilateral foraminotomies C5-C6 Anterior cervical arthrodesis 6 C5-C6 Placement of 8 mm spira cage filled with DBM and C5-C6 Application of villatoro plate and screws across C5-6 POD#1 Activity, wound care, DVT prophylaxis per primary team Continue bowel regimen to prevent constipation Monitor CBC Pain control Appreciate orthopedics input Continue incentive spirometry (2) Diabetes mellitus, type 2: Last HbA1C: high 9's as per patient Expect elevated blood glucose levels secondary to steroids Follows with endocrinology as outpatient Continue insulin therapy while hospitalized Advised to follow-up with his level vial curvature gauger upon discharge Monitor BGs (3) Hypertension: BP stable Continue Amlodipine, lisinopril, metoprolol (4) Hyperlipidemia: continue simvastatin (5) Hypothyroidism: continue levothyroxine DVT Px: SCDs per ortho Disposition As per primary service Advised to follow-up with PCP, level vial curvature gauger, orthopedics upon discharge Admission and Anticipated Discharge Date Admission Date: April 20, 2020 Subjective Patient is seen and examined at bedside Denies any significant neck pain at the surgical site Also denies dysphagia, odynophagia, chest pain, shortness of breath, dizziness, nausea, abdominal pain Offers no other complaints Plan to be discharged home. Review of Systems Review of Systems: All systems reviewed & are unremarkable except as noted in HPI & below Physical Exam Physical Exam: Physical Exam: Vitals signs as noted above General Appearance:Moderately built and nourished, no apparent distress Head: normocephalic, Atraumatic Eyes: normal inspection, EOMI Neck: supple, Trachea midline, + surgical site in dressing, drain Respiratory/Chest: Normal breath sounds, CTA Cardiovascular: S1, S2, No murmur Abdomen/GI:Soft, Non tender, Bowel sounds present Extremities/Musculoskelatal:normal inspection, no edema Neurologic/Psych:AAOX3, grossly no focal neurological deficits Skin: normal color, warm Results & Data Results & Data ([facility] [place]) Vital Signs (Past 12 Hours) Vital Signs Temp Pulse Pulse Resp BP Pulse Ox 04/21/20 11:14 64 18 93 04/21/20 08:16 36.6 C 75 16 127/75 98 04/21/20 07:06 67 18 97 04/21/20 06:07 36.4 C L 60 18 148/83 H 96 04/21/20 04:00 36.4 C L 60 18 138/81 98 04/21/20 03:49 87 16 97 04/21/20 02:28 36.5 C 55 L 16 120/73 96 04/21/20 00:30 36.4 C L 60 18 139/73 97 Laboratory Results Short CBC 04/21/20 Range/Units 06:51 WBC 10.16 (4.8-10.8) K/uL Hgb 14.1 (14.0-18.0) g/dL Hct 39.2 L (42-52) % Plt Count 138 (130-400) K/uL BMP 04/21/20 06:51 Sodium 138 Potassium 4.3 Chloride 107 Carbon Dioxide 23 BUN 13 Creatinine 0.91 Glucose 146 H Calcium 8.5
[2020-04-22] MEDS ORDERED: bisacodyL 10 MG SUPP PR PRN (09:02)
== END 2020-04-21 11:53 | disposition home or self-care (01) | DRG 473 ==
LOC: ASU 05:56 → 3E 09:33